=== PATIENT | male | born 1995 | race Caucasian/White ===

== ENCOUNTER 2017-07-12 16:51 | Inpatient (IN) | payer BC ==
[2017-07-12 17:38] VITALS: BMI 28.8
[2017-07-12] MEDS ORDERED: traMADol HCl 50 MG TAB PO PRN (19:01)
[2017-07-12] MEDS ORDERED: Ondansetron HCl/PF 4 MG/2 ML Vial IVP PRN (19:03)
[2017-07-12] MEDS: HYDROcodone/Acetaminophen 10/325 mg Tablet PO PRN ×2 (19:56→23:48)
[2017-07-13] MEDS ORDERED: CEFAZOLIN/Water 2 GM/20 ML SYRINGE SLOW IVP SCH (00:01)
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
[2017-07-13] MEDS: HYDROcodone/Acetaminophen 10/325 mg Tablet PO PRN ×3 (04:31→18:12)
[2017-07-13] MEDS ORDERED: CEFAZOLIN/Water 2 GM/20 ML SYRINGE ONE (14:52)
[2017-07-13] MEDS ORDERED: Fentanyl 250 MCG/5 ML VIAL ONE (15:07)
[2017-07-13] MEDS ORDERED: Lidocaine 1% PF 5 ML VIAL ONE (15:10)
[2017-07-13] MEDS ORDERED: Propofol 200 MG/20 ML VIAL ONE (15:10)
[2017-07-13] MEDS ORDERED: Dexamethasone 20 MG/5 ML VIAL ONE (15:10)
[2017-07-13] MEDS ORDERED: Ondansetron HCl/PF 4 MG/2 ML Vial ONE (15:10)
[2017-07-13] MEDS ORDERED: Bacitracin Zinc Ointment 30 gm TUBE ONE (15:12)
[2017-07-13] MEDS ORDERED: Neomycin-Polymyxin 1 ML AMP ONE (15:12)
[2017-07-13] MEDS ORDERED: Ketorolac Tromethamine 30 MG/ML VIAL IVP PRN (16:45)
[2017-07-13] MEDS ORDERED: Ondansetron HCl/PF 4 MG/2 ML Vial IVP PRN (16:45)
[2017-07-13] MEDS ORDERED: Promethazine HCl 25 MG/ML VIAL SLOW IVP PRN (16:45)
[2017-07-13] MEDS ORDERED: Meperidine HCl/PF 25 MG/ML VIAL SLOW IVP PRN (16:45)
[2017-07-13] MEDS ORDERED: Promethazine HCl 25 MG/ML VIAL IM PRN (16:45)
[2017-07-13] MEDS ORDERED: Fentanyl 100 MCG/2 ML VIAL ONE ×2 (16:46→17:17)
[2017-07-13] MEDS ORDERED: Meperidine HCl/PF 25 MG/ML VIAL ONE (16:51)
--- NOTE | 2017-07-13 21:58 | OP ---
DATE OF OPERATION: 07/13/2017 OPERATION: Irrigation and debridement of left open tibia fracture, grade 2. PREOPERATIVE DIAGNOSIS: Left grade 2, open tibia fracture. POSTOPERATIVE DIAGNOSIS: Left grade 2, open tibia fracture. COMPLICATIONS: None. ESTIMATED BLOOD LOSS: Minimal. SURGEON: Casimiro Noriega M.D. ANESTHESIA: General. INDICATIONS: Mr. Herrera is a 22-year-old male who has sustained a fracture of the left tibia with an open wound. He was treated initially in [place] with external fixation and irrigation and debridem ent. He has been transferred to our medical center. I have indicated him now for irrigation of the wound to obtain a clean wound bed prior to intramedullary nail fixation. Risks have been reviewed wi th him. He has elected to proceed with the operation. DESCRIPTION OF OPERATION: Mr. Herrera was identified in the preoperative holding area. His correct extremity was marked. He was carried to the operating room. He was positioned supine. General ane sthesia was induced. A multidisciplinary timeout was performed. The left lower extremity was preppe d and draped in a sterile fashion. We began the procedure with opening the patient's traumatic wound. The sutures were removed. We wor ked more deeply down into the wound bed. We thoroughly irrigated with copious lavage and a superfici al aspect of the wound. We trimmed the skin edges. There was no gross contamination or nonviable ti ssue evident. There were no foreign bodies. We thoroughly irrigated with 5 liters of lavage with irrigant. We explored the deep aspect of the wound. We exposed the bony injury as well. All the t issues were irrigated. We then loosely closed with a 2-0 nylon suture. A sterile dressing was appli ed. The patient was then taken to the recovery room in good condition at this point without complica tion.
[2017-07-13] MEDS: CEFAZOLIN/Water 2 GM/20 ML SYRINGE SLOW IVP SCH (22:38)
[2017-07-14] MEDS: HYDROcodone/Acetaminophen 10/325 mg Tablet PO PRN ×2 (03:29→20:49)
[2017-07-14] MEDS: CEFAZOLIN/Water 2 GM/20 ML SYRINGE SLOW IVP SCH ×3 (07:10→23:39)
[2017-07-14] MEDS: Enoxaparin Sodium 40 MG/0.4 ML SYRINGE SC SCH (08:49)
[2017-07-14] MEDS ORDERED: Polyethylene Glycol 3350 17 GM Packet PO SCH (09:45)
[2017-07-15] MEDS: Morphine 2 mg/2ml in 0.9% NaCl PF SYRINGE SLOW IVP PRN ×2 (05:25→23:02)
[2017-07-15] MEDS: CEFAZOLIN/Water 2 GM/20 ML SYRINGE SLOW IVP SCH ×2 (07:53→18:29)
[2017-07-15] MEDS ORDERED: Fentanyl 100 MCG/2 ML VIAL ONE ×3 (08:20→09:08)
[2017-07-15] MEDS ORDERED: Midazolam HCl 2 mg/2 ml Vial ONE ×2 (08:20→08:47)
[2017-07-15] MEDS ORDERED: Neomycin-Polymyxin 1 ML AMP ONE (09:14)
[2017-07-15] MEDS ORDERED: Promethazine HCl 25 MG/ML VIAL IM PRN (10:58)
[2017-07-15] MEDS ORDERED: Promethazine HCl 25 MG/ML VIAL SLOW IVP PRN (10:58)
[2017-07-15] MEDS ORDERED: Ondansetron HCl/PF 4 MG/2 ML Vial IVP PRN (10:58)
[2017-07-15] MEDS ORDERED: CEFAZOLIN/Water 2 GM/20 ML SYRINGE SLOW IVP SCH (12:00)
--- NOTE | 2017-07-15 13:25 | RAD ---
TIBIA AND FIBULA TWO VIEWS: History: ORIF. Comparison: None. FINDINGS: There is antegrade nail placement through the tibia transfixing the distal tibial fracture in satisfa ctory alignment. There is facet distal fibular fracture also seen. IMPRESSION: Satisfactory alignment post fixation. POS: [facility]
[2017-07-15] MEDS: Polyethylene Glycol 3350 17 GM Packet PO SCH (14:19)
[2017-07-15] MEDS: Enoxaparin Sodium 40 MG/0.4 ML SYRINGE SC SCH (16:48)
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
[2017-07-15] MEDS: HYDROcodone/Acetaminophen 10/325 mg Tablet PO PRN (20:54)
[2017-07-16] MEDS ORDERED: Morphine PF 1 MG/ML SYR IV SCH (00:03)
[2017-07-16] MEDS ORDERED: Morphine 2 mg/2ml in 0.9% NaCl PF SYRINGE IV SCH (00:03)
[2017-07-16] MEDS: CEFAZOLIN/Water 2 GM/20 ML SYRINGE SLOW IVP SCH ×2 (00:35→10:49)
[2017-07-16] MEDS: HYDROcodone/Acetaminophen 10/325 mg Tablet PO PRN ×3 (02:03→10:47)
[2017-07-16] MEDS: Morphine 2 mg/2ml in 0.9% NaCl PF SYRINGE SLOW IVP PRN (05:15)
[2017-07-16 05:31] LABS: #Eosinphils 0.1 thou/uL (0.0-0.7); #Lymphocytes 1.6 thou/uL (1.20-3.40); #Monocytes 1.1 thou/uL (0.11-0.59); #Neutrophils 7.3 thou/uL (1.40-6.50); %Basophils 0.5 % (0.0-1.0); %Eosinophils 0.6 % (0.0-10.0); %Lymphocytes 15.6 % (21.0-51.0); %Monocytes 10.5 % (0.0-10.0); Hematocrit 38.6 % (42.0-52.0); Red Blood Cell (RBC) Count 4.25 mill/uL (4.70-6.10)
[2017-07-16] MEDS ORDERED: Morphine 2 mg/2ml in 0.9% NaCl PF SYRINGE IVP SCH (08:35)
[2017-07-16] MEDS: Polyethylene Glycol 3350 17 GM Packet PO SCH (10:48)
[2017-07-16] MEDS: Enoxaparin Sodium 40 MG/0.4 ML SYRINGE SC SCH (10:48)
[2017-07-16 12:37] VITALS: BP 148/97; TEMP 98
== END 2017-07-16 14:56 | disposition home or self-care (01) | DRG 494 ==
LOC: SURG B 16:51
PROVIDERS: ADMIT Orthopaedic Surgery; ATTEND Orthopaedic Surgery
PROC: 0QDH0ZZ Extraction of Left Tibia, Open Approach (ICD-10-PCS; 2017-07-13)
PROC: 0QHH36Z Insertion of Intramedullary Internal Fixation Device into Left Tibia, Percutaneous Approach (ICD-10-PCS; principal; 2017-07-15)
PROC: 0QPHX5Z Removal of External Fixation Device from Left Tibia, External Approach (ICD-10-PCS; 2017-07-15)
PROC: 3E0T3BZ Introduction of Anesthetic Agent into Peripheral Nerves and Plexi, Percutaneous Approach (ICD-10-PCS; 2017-07-15)
PROC: 3E0T3BZ Introduction of Anesthetic Agent into Peripheral Nerves and Plexi, Percutaneous Approach (ICD-10-PCS; 2017-07-15)
DX: S82.392B Other fracture of lower end of left tibia, initial encounter for open fracture type I or II (principal); V29.9XXA Motorcycle rider (driver) (passenger) injured in unspecified traffic accident, initial encounter
CPT/HCPCS: 36415; 76001; 85025; C1713; C1769; G8978-GP-CJ; G8978-GP-CK; G8979-GP-CI; G8979-GP-CJ; J1100; J1650; J2001; J2175; J2250; J2270; J2405; J2704; J3010

== ENCOUNTER 2018-04-14 22:16 | Emergency (ER) | payer BC ==
[2018-04-14 22:42] LABS: #Lymphocytes 1.9 thou/uL (1.20-3.40); #Monocytes 0.5 thou/uL (0.11-0.59); #Neutrophils 4.6 thou/uL (1.40-6.50); %Basophils 0.2 % (0.0-1.0); %Eosinophils 0.4 % (0.0-10.0); %Lymphocytes 26.7 % (21.0-51.0); %Monocytes 7.7 % (0.0-10.0); %Neutrophils 65.1 % (42.0-75.0); Hemoglobin 14.9 g/dL (14.0-18.0); Mean Corpuscular HGB CONC 35.6 g/dL (32.0-36.0); Mean Corpuscular Hemoglobin 30.9 pg (27.0-31.0); Mean Platelet Volume 7.2 fL (7.4-10.4); Platelet Count 225 thou/uL (130-400); RBC Distribution Width 11.4 % (11.5-14.5); White Blood Cell (WBC) Count 7.1 thou/uL (4.8-10.8)
--- NOTE | 2018-04-14 22:52 | RAD ---
RADIOGRAPH CHEST 2 VIEWS: 04/14/18 HISTORY: 23-year-old male with acute chest pain. FINDINGS: The lungs are clear. The cardiomediastinal silhouette and hilar shadows are normal. There is no ple ural effusion. The osseous structures appear normal. There is no pneumothorax. IMPRESSION: Normal. jn [] POS: [facility]
[2018-04-14 23:04] LABS: ALT (SGPT) 12 U/L (8-55); AST (SGOT) 16 U/L (5-34); Albumin 4.8 g/dL (3.5-5.0); Alkaline Phosphatase 79 U/L (40-150); Anion Gap 12 mmol/L (10-20); BUN (Urea Nitrogen) 18 mg/dL (8.9-20.6); Bilirubin, Total 0.9 mg/dL (0.2-1.2); CK (CPK) 187 U/L (30-200); Calc. Creatinine Clearance 0 mL/min (70-130); Calcium 9.7 mg/dL (7.8-10.44); Carbon Dioxide 26 mmol/L (22-29); Chloride 104 mmol/L (98-107); Estimated GFR-MDRD 70; Globulin 3.4 g/dL (2.4-3.5); Glucose 115 mg/dL (70-105); Potassium 3.8 mmol/L (3.5-5.1); Protein, Total 8.2 g/dL (6.0-8.3); Sodium 138 mmol/L (136-145)
[2018-04-14 23:07] LABS: CKMB 1.3 ng/mL (0-6.6); Troponin I Less than 0.010 ng/mL (< 0.028)
== END 2018-04-15 01:46 | disposition home or self-care (01) ==
LOC: ERS 22:16
DX: Z53.21 Procedure and treatment not carried out due to patient leaving prior to being seen by health care provider (principal)
CPT/HCPCS: 36415; 71046; 80053; 82553; 84484; 85025; 93005

== ENCOUNTER 2019-03-23 09:17 | Day surgery (SDC) | payer BC ==
[2019-03-23] MEDS ORDERED: ceFAZolin Sodium (SDC) 2 GM/100 ML BAG ONE (09:46)
[2019-03-23] MEDS ORDERED: Fentanyl 100 MCG/2 ML VIAL ONE ×4 (10:53→13:17)
[2019-03-23] MEDS ORDERED: Meperidine HCl/PF 25 MG/ML VIAL ONE (12:07)
--- NOTE | 2019-03-23 12:12 | RAD ---
Left lower leg 2 views intraoperative fluoroscopy HISTORY: Leg fracture. FINDINGS: Intraoperative fluoroscopy was provided for orthopedic hardware manipulation as performed armand Noriega. Spot fluoroscopic images show medullary brook transversing the shaft of the tibia. Healing distal tibial fracture. Alignment is anatomic.
[2019-03-23] MEDS ORDERED: Morphine 4 MG/ML VIAL ONE ×2 (14:17→15:49)
[2019-03-23] MEDS ORDERED: HYDROcodone/Acetaminophen 5/325 mg Tablet ONE (14:42)
--- NOTE | 2019-03-23 18:46 | OP ---
DATE OF PROCEDURE: 03/23/2019 OPERATIONS: 1. Intramedullary nail removal from left tibia. 2. Replacement of reamed intramedullary nail to left tibia. PREOPERATIVE DIAGNOSIS: Left tibial nonunion. POSTOPERATIVE DIAGNOSIS: Left tibial nonunion. COMPLICATIONS: None. ESTIMATED BLOOD LOSS: 100 mL. OFFICE CLERK ROUTINE: Kerrie Barrios PA-C IMPLANTS: Synthes 12-mm nail by 390 mm with Crosslock screws. INDICATIONS: Mr. Herrera is a 24-year-old male who fractured his left tibia. It was an open fracture, treated initially with external fixation followed by intramedullary nail placement. He has gone on to nonunion. He was indicated for exchange now to hopefully promote healing and allow him for return to all activities. Risks have been reviewed in detail. He has elected to proceed with the operation. All questions have been answered. DESCRIPTION OF PROCEDURE: Mr. Herrera was identified in the preoperative holding area. His correct extremity was marked. He was carried to the operating room. He was given intravenous antibiotics. The left lower extremity was prepped and draped in sterile fashion. We began the procedure with removal of the patient's distal Crosslock screws. The screws were removed appropriately with a screwdriver after making distal incisions. We then removed his proximal Crosslock screw. At this point, we made an incision over the knee and removed the patient's intramedullary nail once the proximal nail was exposed. At this point, we placed our guidewire across the fracture distally. We then over-reamed the guidewire. We started a size 10 and reamed up to a size 13-mm reamer. At this point, we placed our 12-mm intramedullary nail. We placed a Crosslock screw in a dynamic position proximally followed by distal Crosslock screw. We took x-ray images confirming hardware placement. There were no complications. At this point, we irrigated all wounds and closed appropriately in layers. The patient was taken to the recovery room in good condition. Job ID: [id number]
== END 2019-03-23 17:00 | disposition home or self-care (01) ==
LOC: SDC 09:17
PROVIDERS: ATTEND Orthopaedic Surgery
PROC: 0QUH0JZ Supplement Left Tibia with Synthetic Substitute, Open Approach (ICD-10-PCS; principal; 2019-03-23)
DX: S82.202N Unspecified fracture of shaft of left tibia, subsequent encounter for open fracture type IIIA, IIIB, or IIIC with nonunion (principal)
CPT/HCPCS: 76000; C1713; C1769; J0690; J2175; J2270; J3010